=== PATIENT | male | born 1950 | race Caucasian/White ===

== ENCOUNTER 2018-04-14 14:17 | Emergency (ER) | payer MEDICARE ==
[~2018-04-14] VITALS: Wt 77.1 kg
[~2018-04-14 14:17] MED LIST: 'CLONIDINE0.1 MG PO; 'zithromax250 MG PO; ALEVE220 MG PO; ALLOPURINOL100 MG PO; AMLODIPINE BESYL5 MG PO; CIPROFLOXACIN500 MG PO; CLONIDINE HCL0.2 MG PO; CLONIDINE HCL0.3 MG PO; CLONIDINE0.2 MG PO; CLONIDINE0.3 MG/21 TD; FINASTERIDE5 MG PO; FLOMAX0.4 MG PO; HYDR25T PO; HYDROCODONE BIT1 T11 PO; LISINOPRIL AND1 TA2 PO; LISINOPRIL20 MG PO; Lopressor25 MG PO; METHYLDOPA250 MG PO; METOPROLOL SR50 MG; METOPROLOL25 MG PO; METOPROLOL50 MG PO
[2018-04-14] MEDS ORDERED: CLONIDINE0.2 MG PO (15:31)
[2018-04-14] MEDS ORDERED: MOBIC15 MG PO (15:32)
== END 2018-04-14 14:39 | disposition expired ==
LOC: ED 14:17
DX: I46.9 Cardiac arrest, cause unspecified (principal); Z79.899 Other long term (current) drug therapy